=== PATIENT | female | born 1990 | race Hispanic/Latino ===

== ENCOUNTER 2018-04-20 11:09 | Emergency (ER) | payer OTHER ==
[~2018-04-20] VITALS: Ht 149.9 cm; Wt 53.6 kg
[2018-04-20] MEDS ORDERED: DEPO150I IM (11:31)
[2018-04-20] MEDS ORDERED: NS 1,000 ML IV ONE (11:45)
[2018-04-20 11:51] LABS: BASO % 0.5 % (0.0-1.0); EOS # 0.3 10^3/uL (0.0-0.50); EOS % 4.9 % (0.0-3.0); HEMATOCRIT 38.9 % (36.0-47.0); HEMOGLOBIN 13.7 g/dl (12.0-15.5); LYMPH # 2.4 10^3/uL (1.5-6.5); LYMPH % 41.4 % (24.0-44.0); MEAN CORPUSCULAR HEMOGLOBIN 30.5 pg (27.0-33.0); MEAN CORPUSCULAR HGB CONC 35.2 g/dl (32.0-36.5); MEAN CORPUSCULAR VOLUME 86.6 fl (80.0-96.0); MONO # 0.5 10^3/uL (0.0-0.8); MONO % 8.7 % (0.0-5.0); NEUTROPHILS # 2.6 10^3/uL (1.8-7.7); PLATELET COUNT, AUTOMATED 351 10^3/uL (150-450); RED BLOOD COUNT 4.49 10^6/uL (4.00-5.40); WHITE BLOOD COUNT 5.9 10^3/uL (4.0-10.0)
[2018-04-20 12:22] LABS: ALBUMIN 3.9 GM/DL (3.2-5.2); ALT/SGPT 16 U/L (12-78); AMYLASE 84 U/L (25-115); BILIRUBIN,DIRECT 0.2 MG/DL (0.0-0.2); BILIRUBIN,TOTAL 0.7 MG/DL (0.2-1.0); BLOOD UREA NITROGEN 16 MG/DL (7-18); CALCIUM LEVEL 8.6 MG/DL (8.5-10.1); CARBON DIOXIDE LEVEL 21 MEQ/L (21-32); CHLORIDE LEVEL 111 MEQ/L (98-107); CREATININE FOR GFR 0.67 MG/DL (0.55-1.30); GLOMERULAR FILTRATION RATE > 60.0 (>60); GLUCOSE, FASTING 86 MG/DL (70-100); LIPASE 198 U/L (73-393); POTASSIUM SERUM 3.9 MEQ/L (3.5-5.1); SODIUM LEVEL 142 MEQ/L (136-145); TOTAL PROTEIN 7.6 GM/DL (6.4-8.2)
[2018-04-20 12:41] VITALS: BP 103/59
[2018-04-20] MEDS ORDERED: PREPCRE TOP (12:59)
== END 2018-04-20 13:15 | disposition home or self-care (01) ==
LOC: M ED 11:09
DX: K64.8 Other hemorrhoids (principal); R19.7 Diarrhea, unspecified; F17.200 Nicotine dependence, unspecified, uncomplicated; Z87.19 Personal history of other diseases of the digestive system; Z98.890 Other specified postprocedural states; Z79.3 Long term (current) use of hormonal contraceptives

== ENCOUNTER 2018-05-14 09:33 | Emergency (ER) | payer OTHER ==
[~2018-05-14] VITALS: Ht 149.9 cm; Wt 53.6 kg
[~2018-05-14 09:33] MED LIST: DEPO150I IM; PREPCRE TOP
[2018-05-14] MEDS ORDERED: NS 1,000 ML IV ONE (10:00)
[2018-05-14] MEDS ORDERED: ONDANSETRON 4MG/2ML VIAL (J2405) IV ONE (10:30)
[2018-05-14 10:53] LABS: BASO % 0.8 % (0.0-1.0); EOS % 0.4 % (0.0-3.0); HEMATOCRIT 41.5 % (36.0-47.0); HEMOGLOBIN 14.2 g/dl (12.0-15.5); LYMPH % 41.3 % (24.0-44.0); MEAN CORPUSCULAR HEMOGLOBIN 30.4 pg (27.0-33.0); MEAN CORPUSCULAR HGB CONC 34.2 g/dl (32.0-36.5); MEAN CORPUSCULAR VOLUME 88.9 fl (80.0-96.0); MONO # 0.4 10^3/uL (0.0-0.8); MONO % 7.7 % (0.0-5.0); NEUTROPHILS # 2.4 10^3/uL (1.8-7.7); NEUTROPHILS % 49.4 % (36.0-66.0); PLATELET COUNT, AUTOMATED 360 10^3/uL (150-450); RED BLOOD COUNT 4.67 10^6/uL (4.00-5.40); WHITE BLOOD COUNT 4.8 10^3/uL (4.0-10.0)
[2018-05-14] MEDS ORDERED: KETOROLAC 30 MG/ML VIAL (J1885) IV ONE (11:00)
[2018-05-14 11:18] LABS: ALBUMIN 4.3 GM/DL (3.2-5.2); ALT/SGPT 13 U/L (12-78); AMYLASE 79 U/L (25-115); BILIRUBIN,DIRECT 0.1 MG/DL (0.0-0.2); BILIRUBIN,TOTAL 0.5 MG/DL (0.2-1.0); BLOOD UREA NITROGEN 14 MG/DL (7-18); CALCIUM LEVEL 9.2 MG/DL (8.5-10.1); CARBON DIOXIDE LEVEL 24 MEQ/L (21-32); CHLORIDE LEVEL 110 MEQ/L (98-107); CREATININE FOR GFR 0.72 MG/DL (0.55-1.30); GLOMERULAR FILTRATION RATE > 60.0 (>60); GLUCOSE, FASTING 89 MG/DL (70-100); LIPASE 174 U/L (73-393); POTASSIUM SERUM 3.9 MEQ/L (3.5-5.1); SODIUM LEVEL 140 MEQ/L (136-145); TOTAL PROTEIN 8.5 GM/DL (6.4-8.2)
[2018-05-14] MEDS ORDERED: ISOVUE-370 76% 125ML VIAL (Q9967 PER ML) As Ordered ONE (12:36)
--- NOTE | 2018-05-14 13:46 | REP ---
CT ABDOMEN AND PELVIS WITH IV CONTRAST: Visualized lung bases are clear. The liver, spleen, adrenals, pancreas and kidneys are unremarkable. There is no hydronephrosis bilaterally. There is no abdominal aortic aneurysm. I see no adenopathy or free air. No bowel wall thickening is seen. There is no evidence of appendicitis. Very small amount of free fluid in the pelvis is likely physiologic in nature. No definite pelvic mass is seen. Urinary bladder is grossly unremarkable. No anterior abdominal wall defect is seen. IMPRESSION: No evidence of appendicitis or evidence of bowel inflammation. No free air. Very small amount of free fluid in the pelvis is likely physiologic in nature. Electronically Signed by Kwasi Elliott MD 05/14/2018 01:59 P
[2018-05-14] MEDS ORDERED: BACT800T5 PO (14:20)
--- NOTE | 2018-05-14 14:28 | REP ---
PELVIC ULTRASOUND: Real-time sonographic evaluation of the pelvis performed utilizing transabdominal and endovaginal technique. The bladder measures 6.1 x 2.3 x 5.7 cm. The uterus measures 7.3 x 3.2 x 4.1 cm and is retroverted. Endometrial thickness is 5 mm with no endometrial fluid collection. Ovaries are normal in size and echotexture, right ovary measuring 3.1 x 1.6 x 1.5 cm and left ovary 2.8 x 1.2 x 1.1 cm. There is no adnexal mass. There is no torsion of the bilateral ovary, resistive index right ovary 0.60 and left 0.62 with duplex Doppler evaluation. There is a small amount of free fluid. IMPRESSION: Small amount of free fluid. No mass or torsion. Unreviewed
[2018-05-14 15:27] VITALS: BP 100/63
== END 2018-05-14 15:30 | disposition home or self-care (01) ==
LOC: M ED 09:33
DX: N30.00 Acute cystitis without hematuria (principal); Z79.3 Long term (current) use of hormonal contraceptives; Z88.0 Allergy status to penicillin
CPT/HCPCS: 36415; 74177; 76830; 76856; 80048; 80076; 81001; 81025; 82150; 83690; 85025; 87088; 87186; 87507; 93976; 96374; 96375; 99284; J1885; J2405; Q9967